=== PATIENT | male | born 1995 | race Caucasian/White ===

== ENCOUNTER → 2020-10-22 09:43 | Outpatient (BNVA) | payer OTHER, SELFPAY | PROVIDERS: Visit Provider Urology ==

== ENCOUNTER 2021-11-04 10:28 | Outpatient (AMB) | payer OTHER, SELFPAY ==
--- NOTE | 2021-11-04 10:28 | A.OFFVIS_ITS ---
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 They are a patient of Dr Shea. - nephrolithiasis Telemedicine Evaluation 15 min Consultation [employer] Video Nephrolithiasis/Urolithiasis: Six month review No stones on ultrasound Reinforced need for good fluid intake with lemon Avoid soda They are here for further evaluation for nephrolithiasis. They present for evaluation of back pain none Associated symptoms include Fever No Nausea No Chills No Hematuria No Urolithiasis was diagnosed April 2020. The patient previously had kidney stones whose composition w unknown. Laboratory investigations include no recent labs. Prior treatment(s) include observation. Prior imaging includes 01/06 , a CT (computed tomography) scan of the abdomen/pelvis (stone protocol) distal right 3 mm - 10/10 renal ultrasound no stones - 10/11 renal ultrasound no stones Review of Systems Const All systems reviewed & are unremarkable except as noted in HPI and below Reports no additional complaints Resp Reports no additional complaints GI Reports no additional complaints Reports as per HPI Musc Reports no additional complaints Physical Exam Telemedicine evaluation Appropriate responses Regular breathing rate and rhythm HENMT Head: Yes normal to inspection Ears: hearing grossly normal bilaterally Eyes General: appearance normal, both eyes and all related structures Neck Neck: Yes normal visual inspection Chest Chest palpation & inspection: normal inspection of the chest Resp Effort & Inspection: normal respiratory effort and able to speak in complete sentences Assessment & Plan Assessment & Plan (1) Nephrolithiasis: Code(s): N20.0 - Calculus of kidney Plan One year follow-up Orders: Orders US renal BI 1 Year N20.0 - Calculus of kidney Patient Instructions: Imaging studies, laboratory and physical exam results were discussed and reviewed in detail. No major barriers to patient understanding were identified. An opportunity to ask questions regarding the treatment plan was provided. All questions were answered. The patient expressed understanding and agreement with the above treatment plan. The patient is aware they should contact our office by phone for worsening of their current condition or the appearance of new urologic symptoms. Compliance is encouraged with any medications and followup testing that is ordered. It is a privilege to participate in the urologic care of your patient. If you have any questions or concerns regarding treatment for the above conditions, or other urologic issues, please do not hesitate to contact me. The office telephone contact is [phone]. This note is constructed using voice recognition software. While every effort has been made to ensure accuracy lead informatica developer errors may have been included. Yours sincerely, Dr Mulugeta Curran MD, [facility] - Urology Providers of Expert, Compassionate Care for the Genitourinary System Telehealth Telehealth Location of provider rendering services: practice address Location of patient: address on file Patient Identification confirmed using: Name, : Yes Telehealth method: voice only Patient verbally consented to treatment: Yes Patient verbally consented to billing insurance company: Yes Patient informed of any privacy concerns related to visit: Yes Coding Level of Care Code Est Pt Level 3 (84814) Diagnoses Nephrolithiasis N20.0
== END 2021-11-04 11:22 | disposition home or self-care (01) ==
LOC: HO.HUSH 10:28
PROVIDERS: Visit Provider Urology
DX: N20.0 Calculus of kidney (principal)
CPT/HCPCS: 99499

== ENCOUNTER → 2021-11-04 10:28 | Outpatient (BNVA) | payer OTHER, SELFPAY | PROVIDERS: Visit Provider Urology | DX: Z13.89 Encounter for screening for other disorder (principal) ==

== ENCOUNTER → 2022-12-15 14:21 | Outpatient (BNVA) | payer OTHER, SELFPAY | PROVIDERS: PCP Nurse Practitioner Family; Visit Provider Urology | DX: N20.0 Calculus of kidney (principal) | CPT/HCPCS: 99212 ==